=== PATIENT | female | born 1995 | race Caucasian/White ===

== ENCOUNTER 2017-02-10 01:37 | Emergency (ER) | payer SELFPAY ==
[2017-02-10 01:53] VITALS: BP 144/90; TEMP 97.8; O2SAT 97
[2017-02-10] MEDS: ACETAMINOPHEN-CAFF-BUTALBITAL 1 EA TAB PO ONE (02:01)
[2017-02-10] MEDS: IBUPROFEN 200 MG TAB PO ONE (02:01)
--- NOTE | 2017-02-10 02:01 | ED.PDOC ---
History of Present Illness - General Chief Complaint: ENT Problem Stated Complaint: ear pain Time Seen by Provider: 02/10/17 01:54 Source: patient Exam Limitations: no limitations - History of Present Illness Initial Comments: the patient is a 21-year-old female presenting to the emergency room secondary to left ear pain for the last 24-36 hours. No fevers. No sore throat. No new cough. She has had multiple episodes of otitis externa in the past. No hearing changes. No significant drainage. Timing/Duration: 24 hours Severity: mild Improving Factors: nothing Worsening Factors: nothing Associated Symptoms: denies symptoms Home Medications: Ambulatory Orders Emanuel/Poly/Hc Otic Susp [Cortisporin Otic Susp] 4 drop LEFT_EAR Q6H #10 days 02/10 Review of Systems - Review of Systems Constitutional: States: no symptoms reported EENTM: States: see HPI Respiratory: States: no symptoms reported Cardiology: States: no symptoms reported Gastrointestinal/Abdominal: States: no symptoms reported Genitourinary: States: no symptoms reported Musculoskeletal: States: no symptoms reported Skin: States: no symptoms reported Neurological: States: no symptoms reported Past Medical History (General) - Patient Medical History Hx Seizures: No Hx Asthma: No Hx Hypertension: No Hx Thyroid Disease: No Hx Diabetes: No Surgical History: no surgical history - Vaccination History Hx Tetanus, Diphtheria Vaccination: No Hx Influenza Vaccination: No - Social History Hx Tobacco Use: Yes Hx Alcohol Use: Yes - occ - Female History Patient is a Female of Child Bearing Age (10 -59 yrs old): Yes Patient : No Family Medical History - Family History Mother Family History: Unknown Physical Exam - Physical Exam General Appearance: Alert, Comfortable, No apparent distress Eye Exam: bilateral normal Ears, Nose, Throat: hearing grossly normal, normal pharynx, other - eft ear canalis dry but erythematous No drainage. Eardrum is clear. Neck: full range of motion Respiratory: no respiratory distress, no accessory muscle use Cardiovascular/Chest: normal peripheral pulses, no edema Peripheral Pulses: radial,right: 2+, radial,left: 2+ Rectal Exam: deferred Extremity: no pedal edema, normal capillary refill Neurologic: veneer taper II-XII nml as tested, alert, normal mood/affect - flat affect, oriented x 3 Skin Exam: normal color Comments: Vital Signs - 24 hr 02/10/17 01:43 Temperature 97.8 F Pulse Rate [ 84 left] Respiratory 18 Rate Blood Pressure 144/90 [left] O2 Sat by Pulse 97 Oximetry Progress - Progress Progress: 02/10/17 02:01 the patient is a 21-year-old female presenting with otitis externa that appears to be recurrent in nature. The patient will be placed on Cortisporin otic drops for the next 10 days. Additionally she can take Motrin as needed for the discomfort. It is possible that eczema or seborrhea may be contributing to the start of these episodes. At the start of the next episode she should consider taking a zyrtec daily for few days and see if that stops the outbreak. ER warnings were given. Departure - Departure Clinical Impression: Otitis externa Qualifiers: Otitis externa type: unspecified type Chronicity: acute Laterality: left Qualified Code(s): H60.502 - Unspecified acute noninfective otitis externa, left ear Disposition: Discharge to Home or Self Care Condition: Fair Departure Forms: ED Discharge - Pt. Copy, Patient Portal Self Enrollment Instructions: DI for Otitis Externa Diet: regular diet Activity: increase activity as tolerated Prescriptions: Emaunel/Poly/Hc Otic Susp [Cortisporin Otic Susp] 4 drop LEFT_EAR Q6H #10 days Home Medications: Ambulatory Orders Emanuel/Poly/Hc Otic Susp [Cortisporin Otic Susp] 4 drop LEFT_EAR Q6H #10 days 02/10 Additional Instructions: the patient is a 21-year-old female presenting with otitis externa that appears to be recurrent in nature. The patient will be placed on Cortisporin otic drops for the next 10 days. Additionally she can take Motrin as needed for the discomfort. It is possible that eczema or seborrhea may be contributing to the start of these episodes. At the start of the next episode she should consider taking a zyrtec daily for few days and see if that stops the outbreak. ER warnings were given.
== END 2017-02-10 02:09 | disposition home or self-care (01) ==
LOC: ER 01:37
DX: H60.502 Unspecified acute noninfective otitis externa, left ear (principal); Z87.891 Personal history of nicotine dependence